=== PATIENT | female | born 1985 | race Two or more races ===

== ENCOUNTER 2021-09-13 19:46 | Emergency (ER) | payer SELFPAY ==
[~2021-09-13] VITALS: Ht 160 cm; Wt 77.2 kg
[2021-09-13] MEDS ORDERED: IV NORMAL SALINE 1000ML BAG 1,000 ML IV ONE (20:15)
[2021-09-13] MEDS ORDERED: ONDANSETRON PF 4 MG/2 ML VIAL. IVP ONE (20:15)
--- NOTE | 2021-09-13 20:35 | PHYS DOC ---
Past Medical History Past Medical History: No Pertinent History (LITO DENIS DO) Past Surgical History: Appendectomy, (VAL TRAN APRN) Smoking Status: Never Smoker Alcohol Use: None Drug Use: None (LITO DENIS DO) General Adult EDM: Chief Complaint: ABDOMINAL PAIN HPI: HPI: Patient is a 35 year old female with history of gallstones presenting today complaining of 7 out of 10 right upper quadrant abdominal pain, symptoms began yesterday. Patient reports nausea with no vomiting. Denies any diarrhea, back pain, fever. States the pain is worse after eating certain foods. Denies anything specifically relieving the pain. RN interpreted for Portuguese (VAL TRAN APRN) Review of Systems: Review of Systems: Constitutional: Denies fever or chills. [] Eyes: Denies change in visual acuity. [] HENT: Denies nasal congestion or sore throat. [] Respiratory: Denies cough or shortness of breath. [] Cardiovascular: Denies chest pain or edema. [] GI: Reports right upper quadrant abdominal pain with nausea, denies vomiting, bloody stools or diarrhea. [] : Denies dysuria. [] Musculoskeletal: Denies back pain or joint pain. [] Integument: Denies rash. [] Neurologic: Denies headache, focal weakness or sensory changes. Psychiatric: Denies depression or anxiety. [] (VAL TRAN APRN) Heart Score: C/O Chest Pain: N/A Risk Factors: Risk Factors: DM, Current or recent (<one month) smoker, HTN, HLP, family history of CAD, obesity. Risk Scores: Score 0 - 3: 2.5% MACE over next 6 weeks - Discharge Home Score 4 - 6: 20.3% MACE over next 6 weeks - Admit for Clinical Observation Score 7 - 10: 72.7% MACE over next 6 weeks - Early Invasive Strategies (VAL TRAN APRN) Current Medications: Current Medications Medications (Trade) Dose Ordered Sig/Andrea Start Time Stop Time Status Last Admin Dose Admin Fentanyl Citrate (Fentanyl 2ml Vial) 50 mcg PRN Q15MIN PRN 09/13/21 20:15 09/14/21 20:14 Ondansetron HCl (Zofran) 4 mg 1X ONCE 09/13/21 20:15 09/13/21 20:27 DC Sodium Chloride 1,000 ml @ 1,000 mls/hr 1X ONCE 09/13/21 20:15 09/13/21 21:14 (VAL TRAN SENIOR ADVOCATE) Allergies: Allergies: Allergies Coded Allergies Type Severity Reaction Last Updated Verified No Known Drug Allergies 09/13/21 No (VAL TRAN SENIOR ADVOCATE) Physical Exam: PE: Constitutional: Well developed, well nourished, no acute distress, non-toxic appearance. [] HENT: Normocephalic, atraumatic, bilateral external ears normal, oropharynx moist, no oral exudates, nose normal. [] Eyes: PERRLA, EOMI, conjunctiva normal, no discharge. [] Neck: Normal range of motion, no tenderness, supple, no stridor. [] Cardiovascular:Heart rate regular rhythm, no murmur [] Lungs & Thorax: Bilateral breath sounds clear to auscultation [] Abdomen: Bowel sounds normal, soft, tenderness to the right upper quadrant with negative Mcfadden sign, no masses, no pulsatile masses. [] Skin: Warm, dry, no erythema, no rash. [] Back: No tenderness, no CVA tenderness. [] Extremities: No tenderness, no cyanosis, no clubbing, ROM intact, no edema. [] Neurologic: Alert and oriented X 3, normal motor function, normal sensory function, no focal deficits noted. [] Psychologic: Affect normal, judgement normal, mood normal. [] (VAL TRAN SENIOR ADVOCATE) Current Patient Data: Labs: Laboratory Tests Test 09/13/21 20:13 POC Urine HCG, Qualitative Hcg negative (Negative) Vital Signs: Vital Signs Date Time Temp Pulse Resp B/P (MAP) Pulse Ox O2 Delivery O2 Flow Rate FiO2 09/13/21 19:51 97.7 79 18 157/99 (118) 98 Room Air 97.7 (VAL TRAN SENIOR ADVOCATE) EKG: EKG: [] (VAL TRAN SENIOR ADVOCATE) Radiology/Procedures: Radiology/Procedures: []PROCEDURE: ABDOMEN LTD EXAM: ULTRASOUND ABDOMEN LIMITED CLINICAL HISTORY: Reason: RUQ pain hx of gallstones / Spl. Instructions: / History: COMPARISON: None available. TECHNIQUE: Limited ultrasound examination of the right upper quadrant of the abdomen was performed. FINDINGS: Liver contour is normal. Hepatopedal flow noted in the portal vein. Increased echogenicity liver parenchyma. Gallbladder is distended with numerous gallstones. No pericholecystic fluid or w all thickening. Common bile duct measures 8 mm in diameter. Right kidney measures 9.8 cm in long axis Visualized portions aorta and IVC are unremarkable. IMPRESSION: 1. Cholelithiasis 2. Diffuse hepatic steatosis 3. No right-sided hydronephrosis Electronically signed by: Ángela Turner MD (09/13/2021 9:22 PM) [facility] DICTATED and SIGNED BY: ÁNGELA TURNER MD DATE: 09/13/212119 (VAL TRAN APRN) Course & Med Decision Making: Course & Med Decision Making Pertinent Labs and Imaging studies reviewed. (See chart for details) This a 35-year-old female patient presented to the ED today with right upper quadrant abdominal pain since yesterday. CBC with a normal WBC, CMP with AST of 143, ALT of 64, ALK of 70. Negative urine hCG, UA noted for trichomonas. Patient treated for STDs and education provided. Limited right upper quadrant ultrasound noted for Cholelithiasis, hepatic steatosis, right-sided hydronephrosis. Patient was discharged to home. Provided general surgeon to follow-up as an outpatient. (VAL TRAN APRN) Dragon Disclaimer: Dragon Disclaimer: This electronic medical record was generated, in whole or in part, using a voice recognition dictation system. (VAL TRAN APRN) Departure Departure Impression: Primary Impression: Trichomonas vaginitis Additional Impression: Cholelithiases Qualified Codes: K80.80 - Other cholelithiasis without obstruction Disposition: 01 HOME / SELF CARE / HOMELESS Condition: STABLE Referrals: MILTON SILVA MD follow up in 1-2 weeks Patient Instructions: Cholelithiasis, Trichomoniasis Additional Instructions: You were evaluated in the emergency room and noted to have gallstones. Please follow-up with the provided general surgeon in the next 7 days. You also have trichomonas, this is a sexually transmitted disease. Take the prescribed antibiotics until completed. Contact all your sex partners, let them know you are positive for trichomonas and ask them to seek treatment. Use protection at all times Scripts Hydrocodone Bit/Acetaminophen (HYDROCODONE-APAP 5-325 ) 1 Tab Tablet 1 TAB PO PRN Q6HRS PRN for PAIN, #14 TAB 0 Refills Prov: VAL TRAN Michael SENIOR ADVOCATE 09/13/21 Doxycycline Hyclate (DOXYCYCLINE HYCLATE) 100 Mg Tablet 1 TAB PO BID, #14 TAB Prov: VAL TRAN SENIOR ADVOCATE 09/13/21 Attending Signature Attending Signature I have reviewed the PA/RIDE ATTENDANT's note and plan of care. I was available for consultation as needed during the patient's visit in the emergency department. I agree with the clinical impression, plan, and disposition. (LITO DENIS DO) VAL TRAN APRN September 13, 2021 20:35 LITO DENIS DO September 13, 2021 23:36
[2021-09-13 20:42] LABS: AMORPHOUS SEDIMENT,UR PRESENT /HPF; BACTERIA,URINE FEW /HPF (0-FEW); RBC,URINE 0 /HPF (0-2)
[2021-09-13 20:43] LABS: TRICHOMONAS,URINE PRESENT
[2021-09-13] MEDS: fentaNYL PF VIAL 100 MCG/2 ML VIAL IV PRN ×2 (21:20→22:40)
[2021-09-13 21:24] LABS: BASO % 0 % (0-3); EOS % 0 % (0-3); HEMATOCRIT 38.6 % (36.0-47.0); HEMOGLOBIN 12.8 g/dL (12.0-15.5); LYMPH # 0.9 x10^3/uL (1.0-4.8); LYMPH % 15 % (24-48); MEAN CORPUSCULAR HEMOGLOBIN 28 pg (25-35); MEAN CORPUSCULAR HGB CONC 33 g/dL (31-37); MEAN CORPUSCULAR VOLUME 86 fL (79-100); MONO # 0.4 x10^3/uL (0.0-1.1); MONO % 7 % (0-9); NEUT # 4.9 x10^3/uL (1.8-7.7); NEUT % 78 % (31-73); PLATELET COUNT 185 x10^3/uL (140-400); RED BLOOD COUNT 4.51 x10^6/uL (3.50-5.40); RED CELL DISTRIBUTION WIDTH 13.5 % (11.5-14.5); WHITE BLOOD COUNT 6.3 x10^3/uL (4.0-11.0)
--- NOTE | 2021-09-13 21:24 | RAD ---
EXAM: ULTRASOUND ABDOMEN LIMITED CLINICAL HISTORY: Reason: RUQ pain hx of gallstones / Spl. Instructions: / History: COMPARISON: None available. TECHNIQUE: Limited ultrasound examination of the right upper quadrant of the abdomen was performed. FINDINGS: Liver contour is normal. Hepatopedal flow noted in the portal vein. Increased echogenicity liver pare nchyma. Gallbladder is distended with numerous gallstones. No pericholecystic fluid or wall thickening. Commo n bile duct measures 8 mm in diameter. Right kidney measures 9.8 cm in long axis Visualized portions aorta and IVC are unremarkable. IMPRESSION: 1. Cholelithiasis 2. Diffuse hepatic steatosis 3. No right-sided hydronephrosis Electronically signed by: Ángela Gaines MD (09/13/2021 9:22 PM) [facility]
[2021-09-13 21:50] LABS: CALCIUM 8.4 mg/dL (8.5-10.1); CREATININE 0.8 mg/dL (0.6-1.0); GFR 82.6; POTASSIUM 3.8 mmol/L (3.5-5.1)
[2021-09-13 21:55] LABS: ALBUMIN 3.4 g/dL (3.4-5.0); ALBUMIN/GLOBULIN RATIO 0.9 (1.0-1.7); TOTAL BILIRUBIN 0.6 mg/dL (0.2-1.0); TOTAL PROTEIN 7.1 g/dL (6.4-8.2)
[2021-09-13] MEDS ORDERED: DOXYCYCLINE HYCLATE 100 MG TABLET PO ONE (23:00)
[2021-09-13] MEDS ORDERED: metroNIDAZOLE 500 MG TABLET PO ONE (23:00)
[2021-09-13] MEDS ORDERED: cefTRIAXone IM 500 MG VIAL. IM ONE (23:00)
[2021-09-13] MEDS ORDERED: DOXY100T PO (23:11)
[2021-09-13] MEDS ORDERED: HYDR-2761 PO (23:11)
[2021-09-13 23:48] VITALS: BP 130/87
== END 2021-09-13 23:57 | disposition home or self-care (01) ==
LOC: ER 19:46
DX: A59.01 Trichomonal vulvovaginitis (principal); K80.80 Other cholelithiasis without obstruction; Z90.89 Acquired absence of other organs
CPT/HCPCS: 36415; 76705; 80053; 81001; 81025; 83690; 85025; 96361; 96372; 96374; 96375; 99284; J0696; J2405; J3010; J7030